=== PATIENT | female | born 1950 ===

== ENCOUNTER 2019-04-01 09:50 | Emergency (ER) | payer BC ==
[2019-04-01 11:01] VITALS: BP 136/70
--- NOTE | 2019-04-01 11:10 | UC ---
UC General HPI - HPI Summary HPI Summary: Onset two days ago, runny nose,sneezing, cough. bodyaches and fever began yesterday. Cough became productive.No sore throat. Fever at home 102.9 last night. Pt states she had the gi bug with vomiting and diarrhea last weekend befor resp symptoms started. - History of Current Complaint Chief Complaint: UCRespiratory Stated Complaint: FLU LIKE SXS Time Seen by Provider: 04/01/19 10:55 Hx Obtained From: Patient Onset/Duration: Sudden Onset, Lasting Days - 2 Timing: Constant Current Severity: Moderate Pain Intensity: 0 Associated Signs & Symptoms: Positive: Fever, Headache, SOB - Allergy/Home Medications Allergies/Adverse Reactions: Allergies Allergy/AdvReac Type Severity Reaction Status Date / Time Penicillins Allergy Severe Hives Verified 04/01/19 10:49 Home Medications: Home Medications Elderberry Syrup PO DAILY 04/01/19 [History] Guaifenesin/Dextromethorphan [Mucinex Dm ER 600-30 mg Tablet] 1 each PO PRN 04/20 [History] Ibuprofen TAB* [Advil TAB*] 200 mg PO Q6H PRN 04/01/19 [History Confirmed ] PMH/Surg Hx/FS Hx/Imm Hx Previously Healthy: Yes - Surgical History Surgical History: Yes Surgery Procedure, Year, and Place: liver tumor removed - Family History Known Family History: Positive: Hypertension - Social History Alcohol Use: Rare Substance Use Type: None Smoking Status (MU): Never Smoked Tobacco Review of Systems All Other Systems Reviewed And Are Negative: Yes Constitutional: Positive: Fever, Chills ENT: Positive: Sore Throat, Nasal Discharge Respiratory: Positive: Cough Neurological: Positive: Headache Is Patient Immunocompromised?: No Physical Exam Triage Information Reviewed: Yes Appearance: No Pain Distress, Well-Nourished, Ill-Appearing Vital Signs: Initial Vital Signs Temp 99 F 04/01/19 10:53 Pulse 88 04/01/19 10:53 Resp 18 04/01/19 10:53 BP 136/70 04/01/19 10:53 Pulse Ox 96 04/01/19 10:53 Vital Signs Reviewed: Yes Eye Exam: Normal ENT: Positive: Pharyngeal erythema - with PND, Nasal congestion Dental Exam: Normal Neck exam: Normal Respiratory Exam: Normal Respiratory: Positive: Chest non-tender, Lungs clear, Normal breath sounds Cardiovascular Exam: Normal Cardiovascular: Positive: RRR, No Murmur, Pulses Normal Abdominal Exam: Normal Musculoskeletal Exam: Normal Neurological Exam: Normal Psychological Exam: Normal Skin Exam: Normal Course/Dx - Course Course Of Treatment: hx obtained, exam performed ,meds reviewed, rapid flu obtained and is negative - Diagnoses Provider Diagnosis: Fever Discharge ED - Sign-Out/Discharge Documenting (check all that apply): Patient Departure All imaging exams completed and their final reports reviewed: No Studies - Discharge Plan Condition: Stable Disposition: HOME Patient Education Materials: Fever in Adults (ED) Referrals: Aureliano Abebe MD [Primary Care Provider] - Additional Instructions: 1. take 400 mg of tylenol every 4-6 hours 2. Lots of rest and fluids 3. Your flu test was negative, symptoms of viral illness typically resolve on their own in 7-10 days 4. Continue with the Mucinex and if symtpoms become unmanageable follow up - Billing Disposition and Condition Condition: STABLE Disposition: Home
[2019-04-01 11:27] LABS: Influenza A Molecular NEGATIVE (Negative); Influenza B Molecular NEGATIVE (Negative)
== END 2019-04-01 11:38 | disposition home or self-care (01) ==
LOC: UCCORT 09:50
DX: R50.9 Fever, unspecified (principal); R09.89 Other specified symptoms and signs involving the circulatory and respiratory systems; R06.7 Sneezing; R05 Cough; J02.9 Acute pharyngitis, unspecified; R51 Headache; Z88.0 Allergy status to penicillin
CPT/HCPCS: 99211; G0463